=== PATIENT | male | born 1955 | race Caucasian/White ===

== ENCOUNTER → 2019-03-30 10:58 | Outpatient (CLI) | payer OTHER, SELFPAY ==
[2019-03-14 15:41] VITALS: BMI 29.0
--- NOTE | 2019-03-30 11:11 | ECHOD_ITS ---
Reason For Study: SYNCOPE/NEAR SYNCOPE Procedure This was a 2D Doppler, Color Flow transthoracic echocardiogram. Exam performed in department. Left Ventricle Normal LV size. Left ventricular systolic function is normal. The estimated ejection fraction is 60 %. No regional wall motion abnormalities noted. Right Ventricle Normal RV size. Normal systolic function. Atria Normal left atrium. Normal right atrium. Bubble contrast study negative for right to left interatrial shunt. Mitral Valve Normal mitral valve. Tricuspid Valve Normal tricuspid valve. Mild (1+) tricuspid valve insufficiency. Pulmonary artery systolic pressure is 26 mmHg. Aortic Valve Normal aortic valve. Trisinus/trileaflet aortic valve. Pulmonic Valve Normal pulmonic valve. Great Vessels Mildly dilated aortic root. The pulmonary artery is normal size. Normal inferior vena cava. Pericardium/Pleural No pericardial effusion. Medication 22 gauge I.V. with prn adaptor inserted into right arm. Performed a rapid injection of agitated mix of 9 cc saline and 1cc air to assess for atrial septal defect. MMode/2D Measurements & Calculations LVIDd: 5.3 cm IVSd: 0.76 cm Ao root diam: 3.8 cm LVIDs: 3.6 cm LVPWd: 0.83 cm RVDd: 4.3 cm FS: 31.8 % LAV(MOD-bp): 70.0 ml LVAd ap4: 39.6 cm2 SV(MOD-sp4): 79.8 ml LAV(MOD-bp) Indexed: 30.0 ml/m2 EDV(MOD-sp4): 150.5 ml LAV(MOD-sp2): 74.9 ml EDV(sp4-el): 155.4 ml LAV(MOD-sp4): 54.6 ml LVAs ap4: 24.0 cm2 ESV(MOD-sp4): 70.7 ml ESV(sp4-el): 70.8 ml EF(MOD-sp4): 53.0 % EF(sp4-el): 54.5 % SV(sp4-el): 84.6 ml LA A4 area: 20.2 cm2 LA dimension(2D): 4.0 cm RA A4 area: 15.9 cm2 Time Measurements MV dec time: 0.29 sec Doppler Measurements & Calculations MV E max andrez: 54.6 cm/sec Lat Peak E' Andrez: 10.1 cm/sec Med Peak E' Andrez: 9.5 cm/sec MV A max andrez: 56.7 cm/sec E/E' lat: 5.4 E/E' med: 5.8 MV E/A: 0.96 Ao V2 max: 131.0 cm/sec LV V1 max: 92.6 cm/sec PA V2 max: 106.3 cm/sec Ao max P.9 mmHg LV V1 max P.4 mmHg PI end-d andrez: 102.6 cm/sec TR max andrez: 236.0 cm/sec PI dec slope: 161.2 cm/sec2 TR max P.3 mmHg Interpretation Summary Normal LV size. Left ventricular systolic function is normal. The estimated ejection fraction is 60 %. Mild (1+) tricuspid valve insufficiency. Bubble contrast study negative for right to left interatrial shunt. Ordering Physician: Edin Harper Referring Physician: NEHEMIAH GRIJALVA Performed By: Daja Tristan RDCS
== END ==
PROVIDERS: Family Provider Family Medicine; PCP Family Medicine; Referring Provider Internal Medicine Cardiovascular Disease; Visit Provider Internal Medicine Cardiovascular Disease
DX: R55 Syncope and collapse (principal)
CPT/HCPCS: 93306; A4216

== ENCOUNTER 2023-02-14 17:18 | Emergency (ER) | payer OTHER, SELFPAY ==
[2023-02-14 17:18] VITALS: BP 147/77; PULSE 7; RESP 16; TEMP 36.4; O2SAT 98; BMI 30.6
--- NOTE | 2023-02-14 17:38 | EX.ED.DYSGE1 ---
HPI <FABIOLA Kelley - Last Filed: 02/14/23 17:49> History of Present Illness Chief Complaint: Bite Narrative Narrative: 67-year-old male states he ate knocked on someone's door and their dog bit his left hand. He is not sure what type documents but it looks like a large month. He has puncture wounds to the hand which she has cleansed and covered with Neosporin. The material handling technician said the dog's shots are up-to-date. The patient's tetanus is up-to-date. He has no weakness or paresthesias. He is right-hand dominant. PFSH <FABIOLA Kelley - Last Filed: 02/14/23 17:49> PFSH Home Medications clindamycin HCl 300 mg capsule 300 mg PO Q8H 7 days #21 caps 02/14/23 [Rx Last Taken Unknown] doxycycline hyclate 100 mg capsule 100 mg PO BID 7 days #14 caps 02/14/23 [Rx Last Taken Unknown] Allergy/AdvReac Type Severity Reaction Status Date / Time ampicillin Allergy Hives Verified 02/14/23 17:18 Family History Father Heart disease atrial afib Surgical History History of inguinal hernia repair Social History (Updated 03/17/20 @ 08:28 by Edita HICKS, PA) Smoking Status: Never smoker alcohol intake: never ROS <FABIOLA Kelley - Last Filed: 02/14/23 17:49> ROS ED ROS Narrative Constitutional: Negative for fever, chills, malaise. Neuro: Negative for motor/sensory dysfunction. Skin: Positive for wound. Musc: Negative for joint pain. EXAM <FABIOLA Kelley - Last Filed: 02/14/23 17:49> Physical Exam Narrative Exam Narrative: CONST: Patient sitting in no acute distress. EYES: Normal inspection. NECK: Normal inspection. SKIN: Puncture wound on left dorsal proximal hand, abrasion over third MCP joint area. No significant edema, no deformity or crepitus, full range of motion of wrist and hand, no bony tenderness, normal motor and sensory function in median radial and ulnar distributions, 2+ radial pulse and brisk cap refill. NEURO: Oriented x4. PSYCH: Normal affect. Const Vital Signs: 02/14/23 17:18 02/14/23 17:39 Temperature 97.6 F L Temperature Source Temporal Pulse Rate 7 L 70 Respiratory Rate 16 Blood Pressure 147/77 H Blood Pressure Mean 100 Pulse Ox 98 97 Oxygen Delivery Method Room Air Room Air <Dr. Carl Helms, - Last Filed: 02/14/23 20:44> Physical Exam Const Vital Signs: 02/14/23 17:18 02/14/23 17:39 Temperature 97.6 F L Temperature Source Temporal Pulse Rate 7 L 70 Respiratory Rate 16 Blood Pressure 147/77 H Blood Pressure Mean 100 Pulse Ox 98 97 Oxygen Delivery Method Room Air Room Air [facility] <FABIOLA Kelley - Last Filed: 02/14/23 17:49> [facility] Narrative Medical decision making narrative: Patient has dog bites to his left hand?there is a puncture wound and abrasions. There is no bony tenderness no concern for foreign body so an x-ray is indicated. He is neurovascularly intact. Wounds were cleansed and dressed with bacitracin and bandage. He had a reaction to ampicillin in the past causing hives so I prescribed doxycycline and clindamycin x1 week with first dose given here. Wound care instructions were given. Tetanus is up-to-date. He was discharged in stable condition. <Dr. Carl Helms, DO - Last Filed: 02/14/23 20:44> [facility] Narrative Medical decision making narrative: Patient has dog bites to his left hand?there is a puncture wound and abrasions. There is no bony tenderness no concern for foreign body so an x-ray is indicated. He is neurovascularly intact. Wounds were cleansed and dressed with bacitracin and bandage. He had a reaction to ampicillin in the past causing hives so I prescribed doxycycline and clindamycin x1 week with first dose given here. Wound care instructions were given. Tetanus is up-to-date. He was discharged in stable condition. This patient was seen with a PA/[employer] SALES ENGINEER Individually assessed they patient including history and physical. I have reviewed everything on the chart that is available and agree with the documentation provided by the PA/[employer] SALES ENGINEER including discussion about the assessment, treatment plan, discussion, and return precautions. Patient with dog bite with puncture wounds and abrasions to the left wrist and hand. Does not appear to be any foreign bodies and appears to be neurovascular intact. Wounds were cleaned and dressed. Patient will be started on doxycycline and clindamycin given that he is allergic to ampicillin. Counseled on wound care and follow-up. Tetanus was updated today. Return precautions discussed. Impression: 1. Dog bite left wrist/hand 2. Tetanus immunization Discharge Plan Triage Chief Complaint: Bite ED Midlevel Provider: Meghan Davis ED Provider: Carl Hemls Dx/Rx/DC Orders Clinical Impression: Dog bite of left hand Instructions: ED Dog Bite Prescriptions: New doxycycline hyclate 100 mg capsule 100 mg PO BID 7 Days Qty: 14 0RF clindamycin HCl 300 mg capsule 300 mg PO Q8H 7 Days Qty: 21 0RF Primary Care Provider: Fredy Hamilton Referrals: Fredy Hamilton MD [Primary Care Provider] - Activity Restrictions/Additional Instructions: Keep area clean. Please be reevaluated if you develop signs of infection like redness, swelling, pus, fever, or increased pain. Disposition Disposition: Home, Self Care Discharge Date/Time: 02/14/23 18:36
[2023-02-14 17:39] VITALS: PULSE 70; O2SAT 97
[2023-02-14] MEDS: Clindamycin HCl 150 MG Capsule 300 MG PO (17:57)
[2023-02-14] MEDS: Doxycycline 100 MG CAPSULE PO (17:58)
[2023-02-14] MEDS: Diphth,Pertuss(Acell),Tet Vac 0.5 ML Vial IM (18:25)
== END 2023-02-14 18:36 | disposition home or self-care (01) ==
PROVIDERS: Emergency Provider Student in an Organized Health Care Education/Training Program; PCP Family Medicine; Visit Provider Student in an Organized Health Care Education/Training Program
DX: S61.452A Open bite of left hand, initial encounter (principal); W54.0XXA Bitten by dog, initial encounter; S61.552A Open bite of left wrist, initial encounter; Z23 Encounter for immunization
CPT/HCPCS: 90471; 90715; 99283